=== PATIENT | male | born 1985 | race Caucasian/White ===

== ENCOUNTER 2017-01-21 13:26 | Observation (INO) | payer OTHER ==
[~2017-01-21] VITALS: Ht 188 cm; Wt 82.6 kg
[2017-01-21 16:11] LABS: Albumin 4.3 g/dL (3.4-5.0); Anion Gap 11 (5-15); BUN/Creatinine Ratio 8.8; Blood Urea Nitrogen 9 mg/dL (7-18); Calcium 9.3 mg/dL (8.5-10.1); Carbon Dioxide 29 mmol/L (21-32); Chloride 102 mmol/L (98-107); GFR African American 108 mL/min; GFR Non-African American 89 mL/min; Glucose 145 mg/dL (74-106); Magnesium 2.3 mg/dL (1.6-2.6); Potassium 3.7 mmol/L (3.5-5.1); Sodium 142 mmol/L (136-145)
[2017-01-21 16:16] LABS: Alkaline Phosphatase 125 U/L (45-117); Aspartate Aminotransferase 27 U/L (15-37); Bilirubin, Total 0.3 mg/dL (0.2-1.0); Total Protein 9.3 g/dL (6.4-8.2)
[2017-01-21 16:28] LABS: Basophils # (auto) 0.1 uL; Basophils % (auto) 0.7 % (0.0-2.0); Eosinophils # (auto) 0.5 uL; Hematocrit 42.1 % (41.0-53.0); Hemoglobin 13.7 g/dL (13.5-17.5); Lymphocytes # (auto) 1.9 uL; Lymphocytes % (auto) 26.5 % (10.0-50.0); Mean Corpuscular Hemoglobin 28.4 pg (28.0-32.0); Mean Corpuscular Hgb Conc. 32.6 g/dL (32.0-36.0); Mean Corpuscular Volume 87.2 fL (80.0-100.0); Mean Platelet Volume 9.6 fL (7.4-10.4); Monocytes # (auto) 0.6 uL; Monocytes % (auto) 7.7 % (0.0-12.0); Neutrophils # (auto) 4.2 uL; Neutrophils % (auto) 58.1 % (37.0-80.0); Platelet Count (auto) 205 10^3/uL (140-450); Red Cell Distribution Width 14.2 % (11.6-16.0); White Blood Cell 7.2 10^3/uL (4.4-10.8)
[2017-01-21 16:51] LABS: Partial Thromboplastin Time 24.5 sec (22.64-33.71)
[2017-01-21 17:14] LABS: INR 1.2 (0.9-1.15); Prothrombin Time 13.1 sec (9.37-12.3)
[2017-01-21] MEDS ORDERED: ASPirin-EC 81 mg tab PO ONE (17:15)
[2017-01-21] MEDS ORDERED: IOHEXOL 350 MG/ML 100ML IJ ONE (18:19)
[2017-01-21 19:29] VITALS: BP 147/93
== END 2017-01-21 19:37 | disposition home or self-care (01) | DRG 313 ==
LOC: ER 13:26 → OVERFLOW 16:01 → ER 19:37
PROVIDERS: ADMIT Family Medicine; ATTEND Family Medicine
DX: R07.89 Other chest pain (principal); E10.9 Type 1 diabetes mellitus without complications; J45.909 Unspecified asthma, uncomplicated; Z87.442 Personal history of urinary calculi; Z79.4 Long term (current) use of insulin
CPT/HCPCS: 36415; 71010; 71275; 80053; 83735; 84443; 84484; 85379; 85610; 85730; 93005; 99285; G0378; Q9967